=== PATIENT | male | born 1955 | race African-American/Black ===

== ENCOUNTER 2017-05-12 22:40 | Observation (INO) | payer BC ==
[~2017-05-12 22:40] MED LIST: ADVAIR 50028 BLISTE1 PO; ALBUTEROL2.5 MG/3 M INH; AZITHROMYCIN PO; CYCLOBENZAPRINE10 M1 PO; DALIRESP500 MC1 PO; DOXYCYCLINE HY100 M3 PO; GLIPIZIDE ER5 MG PO; MONTELUKAST SOD10 M2 PO; NORCO 5-325 TA1 EACH PO; PREDNISONE10 M1 PO; PREDNISONE20 M1 PO; PROAIR HFA8.5 GM IH; PROAIR HFA8.5 GM INH; PROMETH-CODEIN 65 ML PO; QNASL8.7 G1 INH; SYMBICORT 80-41 PUFF INH; ZESTRIL5 M1 PO; ZITHROMAX250 M1 PO
[2017-05-12 22:56] LABS: CARBON DIOXIDE-VENOUS 24 mmol/L (21-33); CREATININE 1.39 mg/dl (0.67-1.17); GLUCOSE 136 mg/dl (65-120); POTASSIUM 4.4 mmol/L (3.5-5.3); SODIUM 138 mmol/L (135-146); eGFR VALUE FOR BLACK 62 mL/Min
[2017-05-12 22:57] LABS: BASO % 0.2 % (0-2); EOS % 0.7 % (0-7); HCT-HEMATOCRIT 43.5 % (36.0-53.5); HGB-HEMOGLOBIN 15.1 gm/dl (13.5-17.0); IMMATURE GRANULOCYTES ABSOLUTE 0.04 tho/cmm (0-0.03); IMMATURE GRANULOCYTES PERCENT 0.7 % (0-0.3); LYMPH % 19.3 % (20-45); LYMPH ABSOLUTE COUNT 1.1 tho/cmm (0.8-4.5); MCH (MEAN CORPUSCULAR HGB) 30.8 pg (28.0-32.0); MCHC MEAN CORPUSCULAR HGB CONC 34.7 % (32.0-36.0); MCV (MEAN CELL VOLUME) 88.6 fl (82.0-96.0); MEAN PLATELET VOLUME 9.7 cmc (9.4-12.4); MONO % 9.9 % (0-12); MONOCYTE ABSOLUTE COUNT 0.6 tho/cmm (0.0-1.2); NEUTROPHIL ABSOLUTE COUNT 4.1 tho/cmm (1.6-8.0); NEUTROPHIL-AUTOMATED 4.1 tho/cmm (1.6-8.0); NEUTROPHILS % 69.2 % (40-80); PLATELET COUNT 231 tho/cmm (150-450); RED BLOOD COUNT 4.91 mil/cmm (4.40-5.70); RED CELL DISTRIBUTION WIDTH 13.9 % (12.4-16.4); WHITE BLOOD COUNT 5.9 tho/cmm (4.0-10.0)
[2017-05-12 23:07] LABS: INR 1.2 INR (0.9-1.1); PROTHROMBIN TIME 13.7 SECONDS (9.0-13.6)
[2017-05-12 23:18] LABS: ALB/GLOB RATIO 0.9 (0.8-2.0); ALBUMIN 3.6 g/dl (3.5-5.0); ALKALINE PHOSPHATASE 56 U/L (33-138); ALT/SGPT 41 U/L (12-78); ANION GAP 12 mmol/L (0-20); AST/SGOT 30 U/L (10-40); BILIRUBIN,TOTAL 0.7 mg/dl (0.0-1.5); BLOOD UREA NITROGEN 24 mg/dl (6-24); CALCIUM 8.9 mg/dl (8.5-10.5); CHLORIDE 107 mmol/l (96-110)
[2017-05-12 23:20] LABS: ESR-ERYTHROCYTE SED RATE 1 mm/hr (0-20)
--- NOTE | 2017-05-13 06:34 | NUR ---
PT UPSET ABOUT "IV BEEPING", EXPLAINED THAT NURSE WAS HELPING OTHER PT. JUST WANTED TO LEAVE. EXPLAINED RISKS OF LEAVING. IMS NOTIFIED AND WENT IN TO TALK WITH PATIENT. REFUSAL TO PERMIT MEDICAL EXAMINATION, TREATMENT OR TRANSFER PAPER WAS REFUSED TO BE SIGNED BY PATIENT VERBALLY. NURSE AND WITNESS DID SIGN PAPER. SECURITY NOTIFIED.
[2017-05-13] MEDS ORDERED: LORATADINE10 M2 PO (14:13)
[2017-08-21] MEDS ORDERED: PREDNISONE10 M1 PO (00:34)
== END 2017-05-13 06:30 | disposition left against medical advice (07) ==
LOC: EDMED 22:40 → EMR2 05-13 00:15 → 5EB 05-13 02:20
PROVIDERS: Emergency Medicine; ADMIT Hospitalist
DX: R29.810 Facial weakness (principal); R47.81 Slurred speech; R29.898 Other symptoms and signs involving the musculoskeletal system; E11.9 Type 2 diabetes mellitus without complications; J45.909 Unspecified asthma, uncomplicated; B20 Human immunodeficiency virus [HIV] disease; I45.10 Unspecified right bundle-branch block; R79.89 Other specified abnormal findings of blood chemistry; Z88.1 Allergy status to other antibiotic agents; Z79.84 Long term (current) use of oral hypoglycemic drugs; Z87.891 Personal history of nicotine dependence; Z98.890 Other specified postprocedural states
CPT/HCPCS: G0378; J7030

== ENCOUNTER 2017-05-13 06:50 | Inpatient (IN) | payer BC, OTHER ==
[2017-05-13 14:01] LABS: URINE BILIRUBIN NEGATIVE (NEG); URINE BLOOD NEGATIVE (NEG); URINE GLUCOSE (UA) NEGATIVE (NEG); URINE KETONE NEGATIVE (NEG); URINE LEUKOCYTE ESTERASE NEGATIVE (NEG); URINE NITRITE NEGATIVE (NEG); URINE PROTEIN NEGATIVE (NEG)
[2017-05-13 14:02] LABS: URINE APPEARANCE CLEAR; URINE COLOR YELLOW
[2017-05-13] MEDS ORDERED: LORATADINE10 M2 PO (14:13)
[2017-05-14 05:48] LABS: BASO % 0.2 % (0-2); EOSINOPHIL ABSOLUTE COUNT 0.1 tho/cmm (0.0-0.7); HGB-HEMOGLOBIN 13.3 gm/dl (13.5-17.0); IMMATURE GRANULOCYTES ABSOLUTE 0.02 tho/cmm (0-0.03); IMMATURE GRANULOCYTES PERCENT 0.4 % (0-0.3); LYMPH % 23.6 % (20-45); LYMPH ABSOLUTE COUNT 1.1 tho/cmm (0.8-4.5); MCH (MEAN CORPUSCULAR HGB) 30.4 pg (28.0-32.0); MCHC MEAN CORPUSCULAR HGB CONC 34.1 % (32.0-36.0); MEAN PLATELET VOLUME 9.8 cmc (9.4-12.4); MONO % 11.6 % (0-12); MONOCYTE ABSOLUTE COUNT 0.6 tho/cmm (0.0-1.2); NEUTROPHIL ABSOLUTE COUNT 3.1 tho/cmm (1.6-8.0); NEUTROPHIL-AUTOMATED 3.1 tho/cmm (1.6-8.0); NEUTROPHILS % 63.2 % (40-80); PLATELET COUNT 199 tho/cmm (150-450); RED BLOOD COUNT 4.38 mil/cmm (4.40-5.70); WHITE BLOOD COUNT 4.8 tho/cmm (4.0-10.0)
[2017-05-14 05:52] LABS: INR 1.2 INR (0.9-1.1); PROTHROMBIN TIME 13.8 SECONDS (9.0-13.6)
[2017-05-14 06:06] LABS: ANION GAP 13 mmol/L (0-20); BLOOD UREA NITROGEN 16 mg/dl (6-24); CALCIUM 8.4 mg/dl (8.5-10.5); CARBON DIOXIDE-VENOUS 22 mmol/L (22-32); CHLORIDE 114 mmol/l (96-110); CHOLESTEROL 116 mg/dl (120-200); CREATININE 1.19 mg/dl (0.60-1.30); GLUCOSE 95 mg/dL (70-110); HDL CHOLESTEROL 42 mg/dl (40-60); LDL CHOLESTEROL 60 mg/dl (0-99); POTASSIUM 4.3 mmol/L (3.7-5.1); SODIUM 145 mmol/L (135-145); TRIGLYCERIDES 71 mg/dl (<149); VLDL 14 mg/dl (0-30); eGFR VALUE FOR BLACK 75 mL/Min
[2017-05-14 17:30] LABS: BASO % 0.3 % (0-2); EOS % 0.2 % (0-7); HCT-HEMATOCRIT 42.8 % (36.0-53.5); HGB-HEMOGLOBIN 14.8 gm/dl (13.5-17.0); IMMATURE GRANULOCYTES ABSOLUTE 0.03 tho/cmm (0-0.03); IMMATURE GRANULOCYTES PERCENT 0.5 % (0-0.3); LYMPH % 24.3 % (20-45); LYMPH ABSOLUTE COUNT 1.5 tho/cmm (0.8-4.5); MCH (MEAN CORPUSCULAR HGB) 30.5 pg (28.0-32.0); MCHC MEAN CORPUSCULAR HGB CONC 34.6 % (32.0-36.0); MCV (MEAN CELL VOLUME) 88.2 fl (82.0-96.0); MEAN PLATELET VOLUME 9.7 cmc (9.4-12.4); MONO % 7.3 % (0-12); MONOCYTE ABSOLUTE COUNT 0.5 tho/cmm (0.0-1.2); NEUTROPHIL ABSOLUTE COUNT 4.2 tho/cmm (1.6-8.0); NEUTROPHIL-AUTOMATED 4.2 tho/cmm (1.6-8.0); NEUTROPHILS % 67.4 % (40-80); PLATELET COUNT 216 tho/cmm (150-450); RED BLOOD COUNT 4.85 mil/cmm (4.40-5.70); WHITE BLOOD COUNT 6.2 tho/cmm (4.0-10.0)
[2017-05-14 17:42] LABS: INR 1.1 INR (0.9-1.1); PROTHROMBIN TIME 13.1 SECONDS (9.0-13.6)
[2017-05-15 02:27] LABS: ANION GAP 10 mmol/L (0-20); BLOOD UREA NITROGEN 17 mg/dl (6-24); CALCIUM 8.4 mg/dl (8.5-10.5); CARBON DIOXIDE-VENOUS 24 mmol/L (22-32); CHLORIDE 110 mmol/l (96-110); CREATININE 1.23 mg/dl (0.60-1.30); GLUCOSE 128 mg/dL (70-110); POTASSIUM 4.2 mmol/L (3.7-5.1); SODIUM 140 mmol/L (135-145); eGFR VALUE FOR BLACK 72 mL/Min
[2017-05-16 05:06] LABS: INR 1.3 INR (0.9-1.1)
[2017-05-16 05:15] LABS: BASO % 0.2 % (0-2); EOS % 0.6 % (0-7); HCT-HEMATOCRIT 40.2 % (36.0-53.5); IMMATURE GRANULOCYTES ABSOLUTE 0.03 tho/cmm (0-0.03); IMMATURE GRANULOCYTES PERCENT 0.6 % (0-0.3); LYMPH % 22.5 % (20-45); LYMPH ABSOLUTE COUNT 1.1 tho/cmm (0.8-4.5); MCH (MEAN CORPUSCULAR HGB) 30.8 pg (28.0-32.0); MCHC MEAN CORPUSCULAR HGB CONC 34.8 % (32.0-36.0); MCV (MEAN CELL VOLUME) 88.4 fl (82.0-96.0); MEAN PLATELET VOLUME 9.9 cmc (9.4-12.4); MONO % 9.8 % (0-12); MONOCYTE ABSOLUTE COUNT 0.5 tho/cmm (0.0-1.2); NEUTROPHIL ABSOLUTE COUNT 3.2 tho/cmm (1.6-8.0); NEUTROPHIL-AUTOMATED 3.2 tho/cmm (1.6-8.0); NEUTROPHILS % 66.3 % (40-80); PLATELET COUNT 200 tho/cmm (150-450); RED BLOOD COUNT 4.55 mil/cmm (4.40-5.70); RED CELL DISTRIBUTION WIDTH 13.9 % (12.4-16.4); WHITE BLOOD COUNT 4.8 tho/cmm (4.0-10.0)
[2017-05-16 05:19] LABS: ANION GAP 13 mmol/L (0-20); BLOOD UREA NITROGEN 15 mg/dl (6-24); CALCIUM 8.4 mg/dl (8.5-10.5); CARBON DIOXIDE-VENOUS 23 mmol/L (22-32); CHLORIDE 108 mmol/l (96-110); GLUCOSE 100 mg/dL (70-110); POTASSIUM 4.1 mmol/L (3.7-5.1); SODIUM 140 mmol/L (135-145); eGFR VALUE FOR BLACK 82 mL/Min
[2017-05-16] MEDS ORDERED: LIPITOR40 M1 PO (12:53)
[2017-05-16] MEDS ORDERED: ELIQUIS5 M1 PO (12:53)
[2017-05-16] MEDS ORDERED: ZESTRIL5 M1 PO (12:54)
[2017-05-16] MEDS ORDERED: ASPIRIN81 M1 PO (12:54)
[2017-05-16] MEDS ORDERED: TOPROL XL25 M1 PO (12:54)
[2017-05-16] MEDS ORDERED: PROTONIX40 M2 PO (12:55)
[2017-08-21] MEDS ORDERED: PREDNISONE10 M1 PO (00:34)
== END 2017-05-16 14:10 | DRG 66 ==
LOC: EDMED 06:50 → EMR2 07:48 → 5EB 08:01
PROVIDERS: Emergency Medicine; Internal Medicine; Internal Medicine Cardiovascular Disease; Neurological Surgery; Physician Assistant Medical; Psychiatry & Neurology Neurology; ADMIT Family Medicine
PROC: 4A023N7 Measurement of Cardiac Sampling and Pressure, Left Heart, Percutaneous Approach (ICD-10-PCS; principal; 2017-05-15)
PROC: B2111ZZ Fluoroscopy of Multiple Coronary Arteries using Low Osmolar Contrast (ICD-10-PCS; 2017-05-15)
PROC: B2151ZZ Fluoroscopy of Left Heart using Low Osmolar Contrast (ICD-10-PCS; 2017-05-15)
DX: I63.9 Cerebral infarction, unspecified (principal); E11.9 Type 2 diabetes mellitus without complications; J45.909 Unspecified asthma, uncomplicated
CPT/HCPCS: A9577; C1894; C8929; G0009; G8978-GP-CI; G8979-GP-CI; G8980-GP-CI; G8987-GO-CJ; G8988-GO-CI; G8989-GO-CJ; G8996-GN-CI; G8997-GN-CH; G9162-GN-CH; G9163-GN-CH; G9164-GN-CH; J1644; J1650; J2270; J7030; Q9967